=== PATIENT | female | born 1950 | race Caucasian/White ===

== ENCOUNTER 2019-04-05 07:12 | Emergency (ER) | payer OTHER ==
[~2019-04-05] VITALS: Ht 165.1 cm; Wt 84.8 kg
--- NOTE | 2019-04-05 07:25 | NUR ---
, from [facility], sob 54% on 5lpm via NC, 100% on nonrebreather mask, BS 160. Patient a/ox2-3, short of breath, attached to the track template maker, iv line established on left fa g20 iv.
[2019-04-05 07:39] LABS: BASOPHILS # (AUTO) 0.1 /CMM (0.0-0.2); BASOPHILS % (AUTO) 0.9 % (0.0-2.0); EOSINOPHILS % (AUTO) 1.7 % (0.0-6.0); HEMATOCRIT 35 % (33-45); HEMOGLOBIN 11.2 g/dL (11.5-14.8); LYMPHOCYTES # (AUTO) 0.8 /CMM (0.8-4.8); LYMPHOCYTES % (AUTO) 11.4 % (20.0-44.0); MEAN CORPUSCULAR HGB CONC 32 g/dl (31.0-36.0); MEAN CORPUSCULAR VOLUME 91 fL (82-100); MONOCYTES # (AUTO) 0.6 /CMM (0.1-1.30); MONOCYTES % (AUTO) 8.4 % (2.0-12.0); NEUTROPHILS # (AUTO) 5.2 /CMM (1.8-8.9); NEUTROPHILS % (AUTO) 77.6 % (43.0-81.0); PLATELET COUNT (AUTO) 336 /CMM (150-450); RED BLOOD CELL COUNT(AUTO) 3.85 MIL/uL (4.0-5.2); WHITE BLOOD COUNT (AUTO) 6.8 K/uL (4.3-11.0)
[2019-04-05 07:50] LABS: CALCIUM, SERUM 8.4 mg/dL (8.5-10.1); CREATININE 1.7 mg/dL (0.6-1.3); POTASSIUM 4.2 mmol/L (3.5-5.1)
[2019-04-05] MEDS ORDERED: FUROSEMIDE 40 MG/4 ML VIAL ONE (07:59)
[2019-04-05] MEDS ORDERED: FUROSEMIDE 40 MG/4 ML VIAL IV ONE (08:00)
[2019-04-05 08:03] LABS: ALBUMIN 2.9 g/dL (3.4-5.0); BILIRUBIN,DIRECT 0.2 mg/dL (0.0-0.2); BILIRUBIN,TOTAL 0.6 mg/dL (0.2-1.0); TOTAL PROTEIN, SERUM 7.6 g/dL (6.4-8.2)
--- NOTE | 2019-04-05 08:29 | NUR ---
SPOKE WITH ANGE FERRER, GAVE CLINICALS VIA PHONE. PER CM, WILL CALL BACK REGARDING UPDATE.
--- NOTE | 2019-04-05 09:01 | NUR ---
CARISSA LYNCH FROM [facility]. PT IS GOING TO BE TRANSFERED TO [facility]. NO ROOM ASSIGNMENT AT THIS TIME AND TEOFILO IS AWARE.
--- NOTE | 2019-04-05 09:08 | NUR ---
CRIS FERRER FROM [facility] CALLED. THEY WANT CLINICALS AND NOTES FAXED OVER TO [facility]. [phone].
--- NOTE | 2019-04-05 10:55 | NUR ---
CRIS FERRER FROM [facility] CALLED BACK SAYING THEY ARE STILL WAITING ON A BED ASSIGNMENT AT [place]. CALL BACK NUMBER [phone]
--- NOTE | 2019-04-05 11:13 | NUR ---
PATIENT RESTING, NO DISTRESS NOTED, VITALS STABLE. ON O2 AT 4LPM VIA NC WITH SPO2 OF 99%.
--- NOTE | 2019-04-05 12:31 | NUR ---
FOLLOWED UP WITH CRIS FERRER FROM [facility]. STILL NO BED ASSIGNMENT.
--- NOTE | 2019-04-05 12:40 | NUR ---
CRIS FERRER FROM [facility] CALLED TO GIVE ROOM ASSIGNMENT. PT WILL BE GOING TO ROOM 112 AT [facility]. NUMBER FOR REPORT [phone].
--- NOTE | 2019-04-05 13:35 | NUR ---
CALLED NURSING SUP FOR BED ASSINGMENT BUT WANT ME TO CONTACT [facility] TO SEE WHATS GOING ON WITH TRANSFER.
--- NOTE | 2019-04-05 13:36 | NUR ---
CALLED CRIS FERRER FROM [facility] AND STILL NO ETA FOR TRANSPORT. WILL CONTACT SHOP REPAIRER FOR FUTHER INFORMATION AND STATUS.
--- NOTE | 2019-04-05 13:39 | NUR ---
RECIEVED CALL FROM CRIS FERRER FROM [facility]. ETA WITH AMBULANCE IS 60-75 MINUTES WITH [facility].
--- NOTE | 2019-04-05 14:24 | NUR ---
REPORT GIVEN TO [facility]
[2019-04-05 15:19] VITALS: BP 159/64
--- NOTE | 2019-04-05 15:25 | NUR ---
Patient Tranfers to outside Facility in stable condition. Picked up by [facility] Location: [facility]
--- NOTE | 2019-04-05 15:44 | NUR ---
Report given to emt. Patient in stable condition, no distress noted. Left in stable condition for [facility].
== END 2019-04-05 15:45 | disposition short-term general hospital (02) ==
LOC: ER 07:12
DX: J81.1 Chronic pulmonary edema (principal); R06.02 Shortness of breath; R09.02 Hypoxemia; I13.2 Hypertensive heart and chronic kidney disease with heart failure and with stage 5 chronic kidney disease, or end stage renal disease; E11.22 Type 2 diabetes mellitus with diabetic chronic kidney disease; N18.6 End stage renal disease; I48.91 Unspecified atrial fibrillation; K21.9 Gastro-esophageal reflux disease without esophagitis; Z99.2 Dependence on renal dialysis; Z88.5 Allergy status to narcotic agent
CPT/HCPCS: 36415; 71045; 80048; 80076; 83880; 84484; 85025; 93005; 96374; 99285; J1940